=== PATIENT | female | born 1975 | race Caucasian/White ===

== ENCOUNTER 2018-12-07 06:02 | Day surgery (SDC) | payer BC ==
[~2018-12-07] VITALS: Ht 180.3 cm; Wt 141.0 kg
[~2018-12-07 06:02] MED LIST: ALBU90OI INH; ASPI81CH PO; Aldactone100 MG PO; BUME1 PO; Bactrim Ds Tab1 EACH PO; CEPH500 PO; CYCL10 PO; Cleocin HCl300 MG PO; DOXY100 PO; HYDACE10B PO; HYDACE5 PO; HYDACE5325 PO; IBUP600 PO; IBUP800 PO; LISI20 PO; Lasix20 MG PO; MULVITMINE; NAPR500 PO; O; POTA20PAC PO; PRED20 PO; Percocet 5-3251 EACH PO; Prednisone20 MG PO; RXOXYACE PO; Synthroid75 MCG PO; VITAMIN D50000 UNIT PO; Valium5 MG PO
--- NOTE | 2018-12-07 06:42 | NUR ---
Ambulatory in Day Surgery History, Chart, Medications and Allergies reviewed before start of procedure. Lungs clear T/O to Auscultation. Patient confirms NPO status and agrees with scheduled surgery. Pre-Op teaching done. Pt verbalizes understanding. Patient States Post-Procedure ride home has been arranged.
--- NOTE | 2018-12-07 08:46 | NUR ---
PT TO STEP DOWN (SDS) DRESSED AND IV REMOVED. Discharged via wheelchair to private car for ride home. BRANDEN MORALES FROM PACU ALREADY REVIEWED DC INSTRUCTIONS WITH PT. AMANDA WRAP WAS C/D/I.
== END 2018-12-07 08:45 | disposition home or self-care (01) ==
LOC: ORSCMMR 06:02 → ORD 07:30 → ORSCMMR 07:30
PROVIDERS: Orthopaedic Surgery
PROC: 01N50ZZ Release Median Nerve, Open Approach (ICD-10-PCS; principal; 2018-12-07 07:30)
DX: G56.01 Carpal tunnel syndrome, right upper limb (principal); D68.51 Activated protein C resistance; E03.9 Hypothyroidism, unspecified; E66.01 Morbid (severe) obesity due to excess calories; Z68.41 Body mass index [BMI] 40.0-44.9, adult; Z79.899 Other long term (current) drug therapy; Z79.82 Long term (current) use of aspirin
CPT/HCPCS: J0690; J2250; J2704; J3010; J7120

== ENCOUNTER 2019-10-30 08:29 | Day surgery (SDC) | payer BC ==
[~2019-10-30] VITALS: Ht 185.4 cm; Wt 131.1 kg
--- NOTE | 2019-10-30 09:52 | NUR ---
Ambulatory in Day Surgery History, Chart, Medications and Allergies reviewed before start of procedure. Lungs clear T/O to Auscultation. Patient confirms NPO status and agrees with scheduled surgery.
--- NOTE | 2019-10-30 12:07 | NUR ---
Patient up to Ambulate independently. Gait steady. Discharge instructions reviewed with patient. Patient verbalizes understanding. Copy given to patient to take home. Patient States Post-Procedure ride home has been arranged. Discharged via wheelchair to private car for ride home. AMANDA WRAP TO L HAND OVER AQUACEL PER PT REQUEST
== END 2019-10-30 22:34 | disposition home or self-care (01) ==
LOC: ORSCMMR 08:29 → ORD 10:30 → ORSCMMR 22:34
PROVIDERS: Orthopaedic Surgery
PROC: 01N50ZZ Release Median Nerve, Open Approach (ICD-10-PCS; principal; 2019-10-30 10:30)
DX: G56.02 Carpal tunnel syndrome, left upper limb (principal); I10 Essential (primary) hypertension; Z86.718 Personal history of other venous thrombosis and embolism; Z79.899 Other long term (current) drug therapy; E66.01 Morbid (severe) obesity due to excess calories; Z68.38 Body mass index [BMI] 38.0-38.9, adult
CPT/HCPCS: J0690; J2250; J2704; J3010; J7120

== ENCOUNTER 2023-06-28 12:53 | Emergency (ER) | payer OTHER ==
[~2023-06-28] VITALS: Ht 208.3 cm; Wt 113.4 kg
[~2023-06-28 12:53] MED LIST changes: +KEFLEX500 MG PO; +XARELTO20 MG PO
[2023-06-28 13:05] VITALS: BP 142/95
[2023-06-28 13:36] LABS: BASOPHILS ABSOLUTE AUTO 0.03 K/mm3 (0.00-0.23); BASOPHILS PERCENT AUTO 0 % (0-2); EOSINOPHILS ABSOLUTE AUTO 0.01 K/mm3 (0.00-0.68); EOSINOPHILS PERCENT AUTO 0 % (0-6); Hematocrit 39.1 % (33.0-51.0); Hemoglobin 12.9 g/dL (11.5-16.0); IMMATURE GRAN ABSOLUTE AUTO 0.05 K/mm3 (0.00-0.10); IMMATURE GRAN PERCENT AUTO 1 % (0-1); LYMPHOCYTES ABSOLUTE AUTO 1.35 K/mm3 (0.84-5.20); LYMPHOCYTES PERCENT AUTO 16 % (21-46); MONOCYTES PERCENT AUTO 4 % (4-13); Mean Corpuscular HGB 28.3 pg (26.0-34.0); Mean Corpuscular Volume 86 fL (80-100); Mean Platelet Volume 10.3 fL (9.1-12.4); NEUTROPHILS ABSOLUTE AUTO 6.62 K/mm3 (1.96-9.15); NEUTROPHILS PERCENT AUTO 79 % (41-73); Platelet Count 310 K/mm3 (150-400); RDW Coefficient Variation 13.9 % (11.7-14.2); RDW Standard Deviation 42.9 fL (35.1-46.3); Red Blood Cell Count 4.56 M/mm3 (3.80-5.20); White Blood Cell Count 8.36 K/mm3 (4.00-11.30)
[2023-06-28 13:48] LABS: Albumin, Blood 3.1 g/dL (3.4-5.0); Albumin/Globulin Ratio 0.7 (0.8-1.8); Bilirubin, Total 0.5 mg/dL (0.1-1.0); Bun/Creatinine Ratio 12.2 (12.0-20.0); Calcium, Blood 8.3 mg/dL (8.5-10.1); Creatinine, Blood 0.57 mg/dL (0.40-1.00); Globulin, Blood 4.4 g/dL (2.2-4.0); Potassium, Blood 3.3 mmol/L (3.5-5.5); Total Protein, Blood 7.5 g/dL (6.4-8.2)
== END 2023-06-28 14:37 | disposition left against medical advice (07) ==
LOC: ER 12:53
PROVIDERS: Physician Assistant
DX: M79.604 Pain in right leg (principal); Z53.29 Procedure and treatment not carried out because of patient's decision for other reasons; M79.605 Pain in left leg
CPT/HCPCS: 80053; 83880; 85025; 99281

== ENCOUNTER 2024-07-02 05:46 | Day surgery (SDC) | payer BC, OTHER ==
[2024-07-02] VITALS (21 sets, daily range): BP systolic 116–143; BP diastolic 65–90
[~2024-07-02] VITALS: Ht 185.4 cm; Wt 122.3 kg
[~2024-07-02 05:46] MED LIST changes: +TIZA4
[2024-07-02] MEDS ORDERED: CeFAZolin Sodium 2,000 MG in NS 100 ML IV SCH (06:15)
[2024-07-02] MEDS ORDERED: Lactated Ringer's 1,000 ML IV SCH ×2 (06:15→10:25)
[2024-07-02] MEDS ORDERED: CeFAZolin Sodium 3,000 MG in NS 100 ML IV SCH (06:30)
--- NOTE | 2024-07-02 06:45 | NUR ---
History, Chart, Medications and Allergies reviewed before start of procedure. Pre-Op teaching done. Pt verbalizes understanding. Patient confirms NPO status and agrees with scheduled surgery. PT GLASSES BAG AND DENTURE CUP GIVEN TO LUMBER LOADER.
[2024-07-02] MEDS ORDERED: Rocuronium Bromide 10 MG/ML 5ML Injection IV ONE ×2 (07:07)
[2024-07-02] MEDS ORDERED: Ketorolac Tromethamine 30mg Vial ONE (07:07)
[2024-07-02] MEDS ORDERED: Lidocaine HCl 2% 20 ML MDV ONE (07:07)
[2024-07-02] MEDS ORDERED: Ondansetron HCl 2 MG / ML 2ML Vial ONE (07:07)
[2024-07-02] MEDS ORDERED: propofoL 20 ML IV ONE (07:07)
[2024-07-02] MEDS ORDERED: FentaNYL Citrate 50 MCG/ML 5 ML Injection ONE (07:07)
[2024-07-02] MEDS ORDERED: Dexamethasone Sod Phos 10 MG/ML 1ML VIAL ONE (07:07)
[2024-07-02] MEDS ORDERED: EpiNEPhrine 1 MG/1 ML 1ML Vial ONE (07:15)
[2024-07-02] MEDS ORDERED: Bupivacaine 0.5% HCl 5 MG/ML 30MLVIAL ONE (07:16)
[2024-07-02] MEDS ORDERED: Sugammadex Sodium 200 MG/2ML SDV (100 MG/ML) ONE (08:18)
[2024-07-02] MEDS ORDERED: Glycopyrrolate 0.2 MG/ML 5ML VIAL ONE (08:18)
[2024-07-02] MEDS ORDERED: Simethicone 80 MG Chew PO PRN (10:25)
[2024-07-02] MEDS ORDERED: HYDROcodone 5-APAP 325 TAB PO PRN (10:25)
[2024-07-02] MEDS ORDERED: FLU VACC TS2024-25(6MOS UP)/PF 45 MCG/0.5 ML SYRINGE IM SCH (10:25)
[2024-07-02] MEDS ORDERED: Ondansetron HCl 2 MG / ML 2ML Vial IV PRN (10:25)
[2024-07-02] MEDS ORDERED: HYDROmorphone HCl/Pf 1MG SYR ONE ×2 (10:28→10:46)
[2024-07-02] MEDS ORDERED: FentaNYL Citrate 50 MCG/ML 2 ML Injection ONE (10:28)
[2024-07-02] MEDS ORDERED: Acetaminophen 325 MG TABLET PO PRN (10:30)
[2024-07-02] MEDS ORDERED: FentaNYL Citrate 50 MCG/ML 2 ML Injection IV PRN (10:30)
[2024-07-02] MEDS ORDERED: OxyCODONE HCL 5 MG TAB PO PRN (10:30)
[2024-07-02] MEDS ORDERED: DiphenhydrAMINE HCL 25 MG Cap PO PRN (10:30)
[2024-07-02] MEDS ORDERED: Ketorolac Tromethamine 30mg Vial IV SCH (12:00)
[2024-07-02 13:16] LABS: BASOPHILS ABSOLUTE AUTO 0.04 K/mm3 (0.00-0.23); BASOPHILS PERCENT AUTO 0 % (0-2); EOSINOPHILS PERCENT AUTO 0 % (0-6); Hematocrit 41.7 % (33.0-51.0); IMMATURE GRAN ABSOLUTE AUTO 0.16 K/mm3 (0.00-0.10); IMMATURE GRAN PERCENT AUTO 1 % (0-1); LYMPHOCYTES ABSOLUTE AUTO 0.99 K/mm3 (0.84-5.20); LYMPHOCYTES PERCENT AUTO 7 % (21-46); MONOCYTES ABSOLUTE AUTO 0.23 K/mm3 (0.16-1.47); MONOCYTES PERCENT AUTO 2 % (4-13); Mean Corpuscular HGB 29.8 pg (26.0-34.0); Mean Corpuscular HGB Conc 33.6 g/dL (31.5-36.5); Mean Corpuscular Volume 89 fL (80-100); Mean Platelet Volume 9.7 fL (9.1-12.4); NEUTROPHILS ABSOLUTE AUTO 12.39 K/mm3 (1.96-9.15); NEUTROPHILS PERCENT AUTO 90 % (41-73); Platelet Count 263 K/mm3 (150-400); RDW Coefficient Variation 12.8 % (11.7-14.2); RDW Standard Deviation 41.8 fL (35.1-46.3); White Blood Cell Count 13.81 K/mm3 (4.00-11.30)
--- NOTE | 2024-07-02 17:17 | NUR ---
DISCHARGE VOIDED x 2 POST HONG REMOVAL, PACKING REMOVED, MINIMAL VAGINAL BLEEDING. EATING, DRINKING & DENIES N/V. PAIN WELL CONTROLLED. SCRIPT GIVEN. ESCORTED OUT VIA WC.
== END 2024-07-02 17:13 | disposition home or self-care (01) ==
LOC: ORSCMMR 05:46 → ORD 07:30 → ORSCMMR 07:30 → SURS 11:50 → ORSCMMR 17:13 → SURS 17:13
PROVIDERS: Obstetrics & Gynecology
PROC: 0JQC0ZZ Repair Pelvic Region Subcutaneous Tissue and Fascia, Open Approach (ICD-10-PCS; principal; 2024-07-02 07:30)
PROC: 0UT9FZZ Resection of Uterus, Via Natural or Artificial Opening With Percutaneous Endoscopic Assistance (ICD-10-PCS; principal; 2024-07-02 07:30)
DX: N95.0 Postmenopausal bleeding (principal); N81.4 Uterovaginal prolapse, unspecified; N80.03 Adenomyosis of the uterus; D25.9 Leiomyoma of uterus, unspecified; Z86.718 Personal history of other venous thrombosis and embolism; Z79.01 Long term (current) use of anticoagulants; D68.51 Activated protein C resistance
CPT/HCPCS: 36415; 85025; 88307; 94762; A9270; J0171; J0690; J1100; J1171; J1885; J2405; J2704; J3010; J7120

== ENCOUNTER 2025-01-08 08:23 | Day surgery (SDC) | payer BC, OTHER ==
[2025-01-08] VITALS (14 sets, daily range): BP systolic 112–145; BP diastolic 67–122
[~2025-01-08] VITALS: Ht 185.4 cm; Wt 122.6 kg
[~2025-01-08 08:23] MED LIST changes: +Chlorhexidine Mouth Care 15 ML UDC MT SCH; +Tranexamic Acid 100 ML IV SCH
[2025-01-08] MEDS ORDERED: ENOX100I SC (09:08)
[2025-01-08] MEDS ORDERED: CeFAZolin Sodium 3,000 MG in NS 100 ML IV SCH ×2 (09:15→20:00)
[2025-01-08] MEDS ORDERED: Ropivacaine 0.5% HCl/Pf 123.125 MG,EPINEPHrine HCL 0.25 MG,Ketorolac Tromethamine 15 MG... INFIL SCH (10:00)
[2025-01-08] MEDS ORDERED: Ketorolac Tromethamine 30mg Vial ONE (10:37)
[2025-01-08] MEDS ORDERED: Dexamethasone Sod Phos 10 MG/ML 1ML VIAL ONE (10:37)
[2025-01-08] MEDS ORDERED: Ondansetron HCl 2 MG / ML 2ML Vial ONE (10:37)
[2025-01-08] MEDS ORDERED: Ondansetron HCl 2 MG / ML 2ML Vial IV PRN ×2 (11:05→14:50)
[2025-01-08] MEDS ORDERED: HYDROmorphone HCl/Pf 1MG SYR IV PRN ×3 (11:05→14:45)
[2025-01-08] MEDS ORDERED: Metoclopramide HCl 5MG / ML 2ML Vial IV PRN ×2 (11:10→14:50)
[2025-01-08] MEDS ORDERED: Magnesium Hydroxide Conc 10 ML UDC PO PRN (11:10)
[2025-01-08] MEDS ORDERED: Bupivacaine 0.5% Inj 50 ML Vial ONE (11:12)
--- NOTE | 2025-01-08 11:53 | NUR ---
Ambulatory in Day Surgery. History, Chart, Medications and Allergies reviewed before start of procedure. Lungs clear T/O to Auscultation. Patient confirms NPO status and agrees with scheduled surgery. Pre-Op teaching done. Pt verbalizes understanding. PT BELONGINGS PLACED UNDERNEATH GURNEY FOR SAFEKEEPING. PT GLASSES TAKEN TO PACU FOR SAFEKEEPING. PT DENTURES LEFT IN PLACE PER DR. B[place].
[2025-01-08] MEDS ORDERED: HYDROmorphone HCl/Pf 1MG SYR ONE (11:55)
[2025-01-08] MEDS ORDERED: ePHEDrine Sulfate 50 MG/ML 1ML Injection ONE (12:20)
[2025-01-08] MEDS ORDERED: FentaNYL Citrate 50 MCG/ML 2 ML Injection ONE (14:37)
[2025-01-08] MEDS ORDERED: FentaNYL Citrate 50 MCG/ML 2 ML Injection IV PRN ×2 (14:45)
[2025-01-08] MEDS ORDERED: Albuterol 2.5 MG/3 ML VIAL INH PRN (14:50)
--- NOTE | 2025-01-08 15:00 | NUR ---
POST OP ARRIVAL TO SURGICAL UNIT VIA HOSPITAL BED. ASSESSMENT CHARTED. CRYOTHERAPY TO L KNEE. NO DRNG NOTED TO DRSG/AMANDA WRAP. SNACKS & DRINKS GIVEN. WILL MEDICATE ONCE SNACKS ARE TAKEN IN.
--- NOTE | 2025-01-08 18:10 | NUR ---
DISCHARGE PT WORKED w/ THERAPY. PAIN WELL CONTROLLED. EATING, DRINKING, & VOIDING WELL. POLAR PACK SENT w/ PT. PT STATES SHE HAS DISCUSSED HER BLOOD THINNER w/ MD & HAS BEEN INSTRUCTED WHAT DTO DO. ESCORTED OUT VIA W/C.
[2025-01-09] MEDS ORDERED: Enoxaparin 100 MG/ML 1ML SYR SC SCH (09:00)
== END 2025-01-08 18:10 | disposition home or self-care (01) ==
LOC: ORSCMMR 08:23 → ORD 10:00 → ORSCMMR 10:00 → SURS 14:55 → ORSCMMR 18:10
PROVIDERS: Orthopaedic Surgery
PROC: 0SRD0JA Replacement of Left Knee Joint with Synthetic Substitute, Uncemented, Open Approach (ICD-10-PCS; principal; 2025-01-08 10:00)
DX: M17.12 Unilateral primary osteoarthritis, left knee (principal); Z86.718 Personal history of other venous thrombosis and embolism; Z79.01 Long term (current) use of anticoagulants; D68.51 Activated protein C resistance; E66.9 Obesity, unspecified; Z68.35 Body mass index [BMI] 35.0-35.9, adult; Z79.899 Other long term (current) drug therapy
CPT/HCPCS: 73560-LT; 97116; 97161; 97530; A9270; C1713; C1776; J0165; J0690; J0735; J1100; J1171; J1885; J2405; J2704; J2795; J3010; J7120